=== PATIENT | female | born 1960 | race Two or more races ===

== ENCOUNTER 2024-03-26 00:50 | Emergency (ER) | payer OTHER ==
[~2024-03-26] VITALS: Ht 157.5 cm; Wt 80.0 kg
[2024-03-26 01:43] VITALS: BP 128/73; PULSE 85; RESP 18; TEMP 97.8; O2SAT 96
[2024-03-26] MEDS: LIDOCAINE 1% HCL (LOCAL ANESTH.) INJ 20ML MDV ID ONE (02:11)
[2024-03-26] MEDS: TETANUS-DIPTH-ACEL PERTUSSIS 0.5ML SYR Tdap IM ONE (02:13)
[2024-03-26] MEDS: HYDROcodone-ACET 5/325MG TAB PO ONE (02:14)
[2024-03-26] MEDS ORDERED: AUG875T PO (03:46)
[2024-03-26] MEDS ORDERED: IBUP-1456 PO (03:48)
== END 2024-03-26 04:29 | disposition home or self-care (01) ==
LOC: EDBD 00:50 → ER 00:50
DX: S22.42XA Multiple fractures of ribs, left side, initial encounter for closed fracture (principal); S81.812A Laceration without foreign body, left lower leg, initial encounter; Z79.1 Long term (current) use of non-steroidal anti-inflammatories (NSAID); V43.52XA Car driver injured in collision with other type car in traffic accident, initial encounter; Y93.89 Activity, other specified; Y92.89 Other specified places as the place of occurrence of the external cause; Y99.8 Other external cause status
CPT/HCPCS: 12001; 71101; 90471; 90715; J2001